=== PATIENT | male | born 1950 | race Caucasian/White ===

== ENCOUNTER → 2018-09-15 | Outpatient (CLI) | payer OTHER ==
[~2018-09-15] MED LIST: CRESTOR5 MG PO; JANUVIA100 MG; METFORMIN HCL1000 MG PO; VASOTEC10 MG PO
== END | disposition home or self-care (01) ==
LOC: GI 09:12
DX: Z12.11 Encounter for screening for malignant neoplasm of colon (principal); Z86.010 Personal history of colon polyps; K57.30 Diverticulosis of large intestine without perforation or abscess without bleeding; K64.8 Other hemorrhoids; I10 Essential (primary) hypertension; E11.9 Type 2 diabetes mellitus without complications; Z98.890 Other specified postprocedural states; Z79.899 Other long term (current) drug therapy
CPT/HCPCS: 62110; 62900